=== PATIENT | female | born 1965 | race Caucasian/White ===

== ENCOUNTER 2017-04-28 21:54 | Emergency (ER) | payer OTHER, MEDICARE ==
[~2017-04-28] VITALS: Ht 160 cm; Wt 76.2 kg
[~2017-04-28 21:54] MED LIST: NAPR-682 PO; ORPH100T PO
[2017-04-28 22:10] VITALS: BP 103/54
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
[2017-04-28] MEDS ORDERED: ACETAMINOPHEN 325 MG TABLET. PO ONE (23:00)
[2017-04-28] MEDS ORDERED: CYCL10TA2 PO (23:03)
== END 2017-04-28 23:07 | disposition home or self-care (01) ==
LOC: ER 21:54
DX: R51 Headache (principal); M54.2 Cervicalgia; J44.9 Chronic obstructive pulmonary disease, unspecified; E11.9 Type 2 diabetes mellitus without complications; Z88.5 Allergy status to narcotic agent; E89.0 Postprocedural hypothyroidism; V49.40XA Driver injured in collision with unspecified motor vehicles in traffic accident, initial encounter; Y93.I9 Activity, other involving external motion; Y92.488 Other paved roadways as the place of occurrence of the external cause; Y99.8 Other external cause status
CPT/HCPCS: 70450; 72125; 99284-25

== ENCOUNTER 2018-01-09 20:47 | Emergency (ER) | payer OTHER, MEDICARE ==
[2018-01-09] MEDS: ALBUTEROL SULFATE 2.5 MG/3 ML NEBU. NEB (21:45)
[2018-01-09] MEDS: AZITHROMYCIN 250 MG TABLET. PO (22:04)
[2018-01-09] MEDS: predniSONE 10 MG TABLET PO (22:04)
[2018-01-09] MEDS: IPRATRPIUM/ALBUTEROL 0.5/2.5MG 3 ML NEBU. NEB (22:45)
== END 2018-01-09 23:11 | disposition home or self-care (01) ==
LOC: ER 23:11
DX: J44.1 Chronic obstructive pulmonary disease with (acute) exacerbation (principal); E11.9 Type 2 diabetes mellitus without complications; F17.210 Nicotine dependence, cigarettes, uncomplicated; Z88.5 Allergy status to narcotic agent
CPT/HCPCS: 71046; 94640; 99284-25; J7512; J7613; J7620; Q0144

== ENCOUNTER 2018-01-11 20:59 | Emergency (ER) | payer OTHER ==
[2018-01-11] MEDS ORDERED: ORPHENADRINE CITRATE 60 MG/2 ML VIAL. IM (21:30)
[2018-01-11] MEDS ORDERED: ONDANSETRON ODT 4 MG TAB.RAPDIS. PO (21:30)
[2018-01-11] MEDS ORDERED: fentaNYL PF VIAL 100 MCG/2 ML VIAL IM (21:30)
== END 2018-01-12 00:01 | disposition home or self-care (01) ==
LOC: ER 01-12 00:01
DX: S13.4XXA Sprain of ligaments of cervical spine, initial encounter (principal); S39.012A Strain of muscle, fascia and tendon of lower back, initial encounter; E11.9 Type 2 diabetes mellitus without complications; E78.00 Pure hypercholesterolemia, unspecified; F32.9 Major depressive disorder, single episode, unspecified; I10 Essential (primary) hypertension; F41.9 Anxiety disorder, unspecified; J44.9 Chronic obstructive pulmonary disease, unspecified; Z96.659 Presence of unspecified artificial knee joint; Z98.84 Bariatric surgery status; Z88.5 Allergy status to narcotic agent; V43.52XA Car driver injured in collision with other type car in traffic accident, initial encounter; Y93.I9 Activity, other involving external motion; Y92.410 Unspecified street and highway as the place of occurrence of the external cause; Y99.8 Other external cause status
CPT/HCPCS: 72040; 72100; 99284-25

== ENCOUNTER → 2019-10-10 | Outpatient (CLI) | payer MEDICARE, OTHER ==
[2018-01-11 21:05] VITALS: BP 112/57
[~2019-10-10] MED LIST changes: +ALBU2.5V8 INH; +AZIT250T PO; +CYCL10TA2 PO; +HYDR-3164 PO; +PRED50TA PO
--- NOTE | 2019-10-10 12:40 | KCIC ---
MR of the right forefoot HISTORY: Nonhealing ulcer, plantar surface of the tip of the second digit, for at least 4 months. TECHNIQUE: Routine multiplanar sequences are obtained. FINDINGS: Marrow edema within the distal second phalanx on T2-weighted images, with loss of fatty signal on T1-weighted images. There is ill-definition of the terminal tuft. In the context of an overlying ulcer, findings are most compatible with osteomyelitis. No evidence of organized fluid collection or drainable abscess. No significant localized soft tissue edema to suggest cellulitis. No evidence of large joint effusion. The visualized tendons are intact without significant tendon sheath fluid. Lesion within the proximal aspect of the third metatarsal, has the appearance of cyst. No evidence of acute fracture. IMPRESSION: 1. Findings are compatible with osteomyelitis of the distal phalanx of the second toe, particularly given the context of an overlying ulcer. 2. No evidence of drainable abscess. Electronically signed by: Grant Nava MD (10/10/2019 12:37 PM) [id number]
== END ==
LOC: KCIC MRI 10:08
PROVIDERS: ATTEND Internal Medicine
DX: L97.519 Non-pressure chronic ulcer of other part of right foot with unspecified severity (principal)
CPT/HCPCS: 73718